=== PATIENT | male | born 1960 | race Hispanic/Latino ===

== ENCOUNTER 2022-11-19 15:00 | Observation (INO) | payer BC ==
--- OUTSIDE RECORDS SUMMARY | 2022-11-19 15:03 | XMS REPORT | Continuity of Care Document ---
:1960 Author Organization [facility] t Address [address] [place] [address] Care Team Providers Name Role Phone Asked, No Pcp Primary Care Physician Unavailable Don Rivas Attending Clinician Unavailable DR BRADFORD ARMANDO Attending Clinician Unavailable DR BRADFORD ARMANDO Admitting Clinician Unavailable Problems Condition Condition Condition Status Onset Resolution Last Treating Co mments Source Name Details Category Date Date Treatment Clinician Date Recurrent Recurrent Disease Active Last Met hodi ventral ventral 12-[address] incisional incisional 00:00: t & Plan: Hospita hernia hernia 00 Formattin l g of this note might be different from the original. The patient has 3 palpable hernias in the right abdomen. The patient brought in imaging on a CD from an outside facility that also shows these 3 hernias. The 2 hernias in the previous gallbladd er incision are recurrent and mesh is seen at this level. On the CT scan. The right lateral hernia is from a previous robotic partial nephrecto my. The patient will be allowed to return to work at this time without any heavy lifting. The patient was told to work on weight loss as his obesity and diabetes puts him at a much higher risk for complicat ion with ventral hernia repair. The patient will call back when he has lost enough weight to get his BMI below 30 kg/m2. Type 2 Type 2 Disease Active Last Methodi diabetes diabetes 12-[address] mellitus mellitus 00:00: t & Plan: Hos nathaly 00 Formattin l g of this note might be different from the original. The patient is an insulin-d ependent diabetic, type II. The patient's hemoglobi n A1c levels have been up and down per the patient. The patient will need tight control of his hemoglobi n A1c prior to any hernia repair. Allergies, Adverse Reactions, Alerts Allergy Allergy Status Severity Reaction(s) Onset Inactive Treating Comm ents Source Name Type Date Date Clinician Karthikeyan Gibbs Active Cardiac Methodi ty to [address] adverse 00:00: Hospita reaction 00 l s to drug Family History Family Member Diagnosis Comments Start Date Stop Date Source Maternal grandmother No Known Problems [facility] Natural mother Leukemia [facility] Paternal grandfather No Known Problems [facility] Paternal grandmother No Known Problems [facility] Natural sister No Known Problems [facility] Natural son No Known Problems [facility] Natural brother Diabetes [facility] Natural brother No Known Problems [facility] Natural daughter No Known Problems [facility] Natural father No Known Problems Met [facility] Maternal grandfather No Known Problems [facility] Social History Social Habit Start Date Stop Date Quantity Comments Source History of tobacco Smokes tobacco [facility] use daily Hospital Cigarettes smoked 2017-12-16 2017-12-16 [facility] current (pack per 00:00:00 00:00:00 Hospita l day) - Reported Tobacco use and 2017-12-16 2017-12-16 Smokeless tobacco [facility] exposure 00:00:00 00:00:00 non-user Hospital Alcohol intake 2017-12-16 2017-12-16 Current drinker [facility] 00:00:00 00:00:00 of alcohol Hospital (finding) Sex Ass[birth year] At [birth year] [employer] 00:00:00 00:00:00 Hospital Smoking Status Start Date Stop Date Source Smokes tobacco daily 2017-12-16 00:00:00 [facility] Medications Ordered Filled Start Stop Current Ordering Indication Dosage Frequency Signature Comments Components Source Medication Medication Date Date Medication? Clinician (SIG) Name Name L. Yes QD Take by Methodi RHAMNOSUS 1-[address] GG/INULIN 10:08: daily. Hospit a (CULTURELLE 50 l PROBIOTICS ORAL) metFORMIN Yes 1000mg Q.5D Take 1,000 Methodi (GLUCOPHAGE 1-[address] ) 1,000 mg 10:08: mouth 2 Hosp christi tablet 50 (two) l times a day with meals. ramipril Yes 5mg QD Take 5 mg Meth rico (ALTACE) 5 -[address] MG capsule 10:08: daily. Hospi ta 50 l fenofibrate 2018-0 Yes 54mg QD Take 54 mg [facility]i (LOFIBRA) -[address] 54 MG 10:08: daily. Hospita tablet 50 l amitriptyli 2018-0 Yes 25mg QD Take 25 mg Methodi ne (ELAVIL) -[address] 25 MG 10:08: nightly. Hospita tablet 50 l icosapent 2018-0 Yes 2g Q.5D Take 2 g [facility] ethyl 1-[address] (VASCEPA) 1 10:08: (two) Hospi ta gram 50 times a l capsule day. BABY 2018-0 Yes QD Take by Methodi ASPIRIN -[address] ORAL 10:08: daily. Hospita 50 l cholecalcif 2018-0 Yes 2000U QD Take 2,000 [facility] [place], 1-[address] vitamin D3, 10:08: mouth Hospi ta (VITAMIN 50 daily. l D3) 2,000 unit capsule capsule cyanocobala 2018-0 Yes 1000ug QD Take 1,000 Methodi min 1000 1-[address] MCG tablet 10:08: mouth Hospit a 50 daily. l cinnamon 2018-0 Yes 500mg Q.5D Take 500 Meth rico bark 500 mg 1-[address] capsule 10:08: mouth 2 Hospita 50 (two) l times a day. pioglitazon 2018-0 Yes 15mg QD Take 15 mg Methodi e (ACTOS) -[address] 15 MG 10:08: daily. Hospita tablet 50 l omeprazole 2018-0 Yes 40mg QD Take 40 mg M ethodi (PriLOSEC) -[address] 40 MG 10:08: daily. Hospita capsule 50 l diclofenac 2018-0 Yes 2g Q.25D Apply 2 g M ethodi (VOLTAREN) -[address] 1 % gel 10:08: 4 (four) Hospit a 50 times a l day. dapaglifloz 2018-0 Yes 10mg QD Take 10 mg Methodi in -[address] (FARXIGA) 10:08: daily. Hospit a 10 mg 50 l tablet dulaglutide 2018-0 Yes 1.5mg Q1W Inject 1.5 Methodi (TRULICITY) 1-[address] 1.5 mg/0.5 10:08: the skin Hos nathaly mL pen 50 every 7 l injector days. INSULIN 2017- Yes 40mL QD Inject 40 Metho di GLARGINE,HU 1-[address] M.REC.ANLOG 10:08: the skin Ho spita (TOUJEO 50 daily. l SOLOSTAR SUBQ) SERTRALINE Yes 200mg QD Take 200 Me thodi HCL (ZOLOFT 1-[address] ORAL) 10:08: mouth Hospita 50 daily. l ALPRAZOLAM Yes Take by Meth rico (NIRAVAM 1-[address] ORAL) 10:08: needed. Hospita 50 l Procedures This patient has no known procedures. Plan of Care Planned Activity Planned Date Details Comments Source Future Scheduled 2022-11-12 COVID-19 VACCINE (#1) [facility] Test 23:04:19 [code = COVID-19 VACCINE (#1)] Future Scheduled 2022-11-12 COLONOSCOPY SCREENING [facility] Test 23:04:19 [code = COLONOSCOPY SCREENING] Future Scheduled 2022-11-12 SHINGLES VACCINES (1 Met [facility] Test 23:04:19 of 2) [code = SHINGLES VACCINES (1 of 2)] Future Scheduled 2022-11-12 INFLUENZA VACCINE [facility] Test 23:04:19 [code = INFLUENZA VACCINE] Encounters Start End Encounter Admission Attending Care Care Encounter Source Date/Time Date/Time Type Type Clinicians Facility Department ID 2022-01-[address] [id number] Common 11:26:00 [facility] 2021-12-[address] [facility] [id number] Common 14:37:28 Don [facility] 2019-09-12 2019-09-12 Outpatient [facility] NICOL [id number] MH 05:08:00 05:08:[address] [facility]osp[facility] l Results Test Description Test Time Test Comments Results Result Comments Source GLUCOMETER GLUCOSE- LAB USE ONLY 2017-04-08 07:50:00 Test Item Value Reference Range Interpretation Comme nts GLUCOMETER (test code = GMG) 160 mg/dL 70-100 H CLEANED METERMeter ID: [id number] tor: [id number] NANCY BRITO
[2022-11-19] MEDS ORDERED: LIDOCAINE 1% MPF 5 ML VIAL ONE (15:15)
[2022-11-19] MEDS ORDERED: BUPIVACAINE 0.5% PF 10 ML VIAL ONE (15:15)
[2022-11-19] MEDS ORDERED: TDAP (DIPHTH,PERTUSS(ACELL),TET VAC) 0.5 ML VIAL IMVAC ONE (15:15)
--- NOTE | 2022-11-19 15:52 | RAD REPORT ---
EXAM DESCRIPTION: RAD - Hand Left 3 View - 11/19/2022 3:43 pm CLINICAL HISTORY: PAIN COMPARISON: No comparisons FINDINGS/IMPRESSION: Partial osseous amputation of the tuft of the second distal phalanx. Bandage ma terial present. No radiopaque foreign body.
--- NOTE | 2022-11-19 16:16 | ER ---
Nurse's Notes [facility] Name: Himanshu Mcdermott Age: 62 yrs Sex: Male : 1960 Arrival Date: 11/19/2022 Time: 15:02 Bed 13 Private MD: Diagnosis: Partial amputation of second digit of left hand with partial amputation of tuft Presentation: 11/19 15:07 Chief complaint: Left index finger tip amputation from a piece of wood that bounced up hb while he was cutting wood. Bleeding controlled via direct pressure. Coronavirus screen: At this time, the client does not indicate any symptoms associated with coronavirus-19. Ebola Screen: No symptoms or risks identified at this time. Risk Assessment: Do you want to hurt yourself or someone else? Patient reports no desire to harm self or others. Onset of symptoms was November 19, 2022. 15:07 Method Of Arrival: Ambulatory hb 15:07 Acuity: PAU 2 hb 19:04 Initial Sepsis Screen: Does the patient meet any 2 criteria? No. Patient's initial db sepsis screen is negative. Does the patient have a suspected source of infection? No. Patient's initial sepsis screen is negative. Triage Assessment: 16:58 General: Appears in no apparent distress. Behavior is calm, cooperative, anxious. db Injury Description: Amputation sustained to left hand and dorsal aspect of distal phalanx of left index finger. Historical: - Allergies: 15:09 Iodine; hb - PMHx: 16:40 Diabetes - IDDM; Hernia; db - Immunization history:: Last tetanus immunization: < 10 years ago. - Social history:: Smoking status: unknown. Screenin:50 [facility] ED Fall Risk Assessment (Adult) History of falling in the last 3 months, db including since admission No falls in past 3 months (0 pts) Confusion or Disorientation No (0 pts) Intoxicated or Sedated No (0 pts) Impaired Gait No (0 pts) Mobility Assist Device Used No (0 pt) Altered Elimination No (0 pt) Score/Fall Risk Level 0 - 2 = Low Risk Oriented to surroundings. Abuse screen: Denies threats or abuse. Denies injuries from another. Nutritional screening: No deficits noted. Tuberculosis screening: No symptoms or risk factors identified. Assessment: 15:47 Reassessment: Patient appears in no apparent distress at this time. left tip of finger db injury. bleeding controlled. Wet to dry dressing applied in ER. General: Appears in no apparent distress. Behavior is calm, cooperative, appropriate for age, quiet. Pain: Complains of pain in left hand. Neuro: No deficits noted. Level of Consciousness is awake, alert, obeys commands, Oriented to person, place, time, situation, Appropriate for age. Cardiovascular: No deficits noted. Respiratory: No deficits noted. GI: No deficits noted. No signs and/or symptoms were reported involving the gastrointestinal system. : No deficits noted. No signs and/or symptoms were reported regarding the genitourinary system. EENT: No deficits noted. No signs and/or symptoms were reported regarding the EENT system. Musculoskeletal: Amputation of left index finger. 16:00 Reassessment: Patient appears in no apparent distress at this time. No changes from db previously documented assessment. Patient and/or family updated on plan of care and expected duration. Pain level reassessed. Patient is alert, oriented x 3, equal unlabored respirations, skin warm/dry/pink. 17:00 Reassessment: Patient appears in no apparent distress at this time. No changes from db previously documented assessment. Patient and/or family updated on plan of care and expected duration. Pain level reassessed. Patient is alert, oriented x 3, equal unlabored respirations, skin warm/dry/pink. 18:30 Reassessment: Patient appears in no apparent distress at this time. No changes from db previously documented assessment. Patient and/or family updated on plan of care and expected duration. Pain level reassessed. Patient is alert, oriented x 3, equal unlabored respirations, skin warm/dry/pink. Vital Signs: 15:00 BP 137 / 91; Pulse 95; Resp 18; Pulse Ox 98% on R/A; db 15:07 BP 137 / 81; Pulse 90; Resp 18; Temp 98.1; Pulse Ox 97% on R/A; Weight 97.52 kg; Height hb 6 ft. 2 in. (187.96 cm); Pain 10/10; 18:00 BP 145 / 86; Pulse 86; Resp 18; Pulse Ox 98% on R/A; db 15:07 Body Mass Index 27.60 (97.52 kg, 187.96 cm) ED Course: 15:02 Patient arrived in ED. rg4 15:05 [facility] Ari[facility]-C [facility]. kb 15:05 Steve Toscano MD is Attending Physician. kb 15:09 Triage completed. hb 15:10 Arm band placed on. hb 15:12 Ximena Mayo, RN is Primary Nurse. db 15:45 Hand Left 3 View XRAY In Process Unspecified. EDMS 15:50 Patient has correct armband on for positive identification. Bed in low position. Call db light in reach. Side rails up X 1. 15:50 Assist provider with laceration repair on left hand. db 16:15 Jacky Blunt MD is Hospitalizing Provider. kb 16:30 Initial lab(s) drawn, by me, sent to lab. Inserted saline lock: 20 gauge in right kj1 antecubital area, using aseptic technique. Blood collected. 16:50 EKG done, by ED staff, reviewed by Haley PINEDO. zm 17:10 Chest Single View XRAY In Process Unspecified. EDMS 17:27 Dressings: Kerlix X 1; left hand and dorsal aspect of distal phalanx of left index db finger 4X4s X 1; left hand and dorsal aspect of distal phalanx of left index finger. Wound care: Dressing re-applied to left injured finger. Bleeding controlled. 19:05 Report given to aluminum molding machine operator RN. Pulse ox on. NIBP on. Lights dimmed. Warm blanket given.db 19:12 Primary Nurse role handed off by Ximena Mayo, JACKY mw2 20:26 Master Aguilar, JACKY is Primary Nurse. as6 11/20 00:31 Patient admitted, IV remains in place. as6 Administered Medications: 11/19 15:34 Drug: Lidocaine (1 %) 1 vials Volume: 5 ml; Route: Infiltration; db 16:08 Follow up: Response: No adverse reaction db 15:35 Drug: Tetanus-Diphtheria Toxoid Adult 0.5 ml {[employer] Professor: [employer] ([employer]). Exp: db 08/22/2023. Lot #: [id number]. } Route: IM; Site: left deltoid; 16:08 Follow up: Response: No adverse reaction db 15:35 Drug: Marcaine (bupivacaine) (0.5 %) 1 vials {Note: BY PROVIDER.} Volume: 10 ml; Route: db Infiltration; 16:08 Follow up: Response: No adverse reaction db 16:32 Drug: Ancef (cefazolin) 1 grams Route: IVPB; Site: right antecubital; db 17:05 Follow up: Response: No adverse reaction; IV Status: Completed infusion; IV Intake: 50mldb Medication: 11/20 00:31 Vaccine Information Statement (VIS) provided today. Questions and/or concerns as6 addressed. VIS edition date: July 04, 2021. Intake: 11/19 17:05 IV: 50ml; Total: 50ml. db Outcome: 16:15 Decision to Hospitalize by Provider. kb 11/20 00:31 Admitted to ER Hold. Please see [employer] for further documentation. as6 Condition: stable Instructed on the need for admit. 07:45 Patient left the ED. db Signatures: Dispatcher [employer] EDHaley Valladares, ASSISTANT PROFESSOR OF BUSINESS-C ASSISTANT PROFESSOR OF BUSINESS-Dionne Guido, RN RN Lesli Greenberg rg4 Bravo Banks mw2 Niru Ariza kj1 Master Aguilar RN RN as6 Negra Mcmahon Danielle, RN RN db Corrections: (The following items were deleted from the chart) 11/19 15:10 15:07 Chief complaint: Left index finger tip amputation from a piece of wood that hb bounced up while he was cutting wood. Bleeding controlled hb
--- NOTE | 2022-11-19 16:16 | EDPHYS ---
Physician Documentation [facility] Name: Himanshu Mcdermott Age: 62 yrs Sex: Male : 1960 Arrival Date: 11/19/2022 Time: 15:02 Bed 13 Private MD: ED Physician Steve Toscano HPI: 11/19 16:24 This 62 yrs old Male presents to ER via Ambulatory with complaints of Finger kb Injury. 16:24 The patient or guardian reports injury, pain. The complaints affect the dorsal aspect kb of distal phalanx of left index finger. Context: The problem was sustained at home, resulted from cutting some wood when a piece flew back and hit finger causing partial amputation. Onset: The symptoms/episode began/occurred just prior to arrival. Modifying factors: The symptoms are alleviated by nothing, the symptoms are aggravated by nothing. Associated signs and symptoms: The patient has no apparent associated signs or symptoms. Severity of symptoms: At their worst the symptoms were moderate, in the emergency department the symptoms are unchanged. The patient has not experienced similar symptoms in the past. The patient has not recently seen a physician. Historical: - Allergies: 15:09 Iodine; hb - PMHx: 16:40 Diabetes - IDDM; Hernia; db - Immunization history:: Last tetanus immunization: < 10 years ago. - Social history:: Smoking status: unknown. ROS: 16:20 Constitutional: Negative for fever, chills, and weight loss. kb 16:20 MS/extremity: Positive for injury or acute deformity, pain, of the dorsal aspect of distal phalanx of left index finger, amputation. 16:20 All other systems are negative. Exam: 16:20 Constitutional: This is a well developed, well nourished patient who is awake, alert, kb and in no acute distress. Head/Face: Normocephalic, atraumatic. ENT: Moist Mucous membranes Cardiovascular: Regular rate and rhythm with a normal S1 and S2. No gallops, murmurs, or rubs. No pulse deficits. Respiratory: Respirations even and unlabored. No increased work of breathing. Talking in full sentences Abdomen/GI: Soft, non-tender. No distention Neuro: Awake and alert, GCS 15, oriented to person, place, time, and situation. Moves all extremities. Normal gait. 16:20 Musculoskeletal/extremity: Extremities: grossly normal except: noted in the dorsal aspect of distal phalanx of left index finger: pain, partial amputation, ROM: intact in all extremities, Circulation is intact in all extremities. Sensation intact. 16:20 Skin: injury, partial amputation of tip of left second digit . 16:50 ECG was reviewed by the Attending Physician. kb Vital Signs: 15:00 BP 137 / 91; Pulse 95; Resp 18; Pulse Ox 98% on R/A; db 15:07 BP 137 / 81; Pulse 90; Resp 18; Temp 98.1; Pulse Ox 97% on R/A; Weight 97.52 kg; Height hb 6 ft. 2 in. (187.96 cm); Pain 10/10; 18:00 BP 145 / 86; Pulse 86; Resp 18; Pulse Ox 98% on R/A; db 15:07 Body Mass Index 27.60 (97.52 kg, 187.96 cm) hb MDM: 15:05 Patient medically screened. kb 16:14 Data reviewed: vital signs, nurses notes. Data interpreted: Pulse oximetry: on room air kb is 97 %. Interpretation: normal. Counseling: I had a detailed discussion with the patient and/or guardian regarding: the historical points, exam findings, and any diagnostic results supporting the discharge/admit diagnosis, lab results, radiology results, the need for further work-up and treatment in the hospital. Physician consultation: Elias Chiang MD was contacted at 16:14, regarding consult, patient's condition, and will see patient in OR, tomorrow. 16:14 Physician consultation: Jacky Blunt MD was contacted at 16:14, regarding admission, kb to the medical/surgical unit. patient's condition, and will see patient in ED. 11/19 16:14 Order name: CBC with Diff; Complete Time: 16:51 kb 11/19 16:14 Order name: Basic Metabolic Panel; Complete Time: 16:52 kb 11/19 17:43 Order name: Urinalysis EDMS 11/19 17:43 Order name: Basic Metabolic Panel EDMS 11/19 17:43 Order name: Basic Metabolic Panel EDMS 11/19 17:43 Order name: CBC with Automated Diff EDMS 11/19 15:10 Order name: Hand Left 3 View XRAY; Complete Time: 15:56 kb 11/19 16:14 Order name: EKG; Complete Time: 16:14 kb 11/19 16:14 Order name: Chest Single View XRAY; Complete Time: 17:21 kb 11/19 17:43 Order name: CBC with Automated Diff EDMS 11/19 16:14 Order name: IV Start; Complete Time: 16:36 kb 11/19 16:14 Order name: EKG - Nurse/Tech; Complete Time: 16:48 kb 11/19 17:43 Order name: 60g Consistent Carbohydrate (ADA 1800/2000) EDMS 11/19 17:43 Order name: NPO EDMS EC:50 Rate is 91 beats/min. Rhythm is regular. QRS Salix is Normal. LA interval is normal at kb 120 msec. QRS interval is normal at 90 msec. QT interval is normal at 437 msec. Administered Medications: 15:34 Drug: Lidocaine (1 %) 1 vials Volume: 5 ml; Route: Infiltration; db 16:08 Follow up: Response: No adverse reaction db 15:35 Drug: Tetanus-Diphtheria Toxoid Adult 0.5 ml {[employer] Supervisor: [employer] ([employer]). Exp: db 08/22/2023. Lot #: [id number]. } Route: IM; Site: left deltoid; 16:08 Follow up: Response: No adverse reaction db 15:35 Drug: Marcaine (bupivacaine) (0.5 %) 1 vials {Note: BY PROVIDER.} Volume: 10 ml; Route: db Infiltration; 16:08 Follow up: Response: No adverse reaction db 16:32 Drug: Ancef (cefazolin) 1 grams Route: IVPB; Site: right antecubital; db 17:05 Follow up: Response: No adverse reaction; IV Status: Completed infusion; IV Intake: 50mldb Disposition: 11/20 21:34 Co-signature as Attending Physician, Steve Toscano MD I agree with the assessment and rt plan of care. Disposition Summary: 11/19/22 16:15 Hospitalization Ordered Hospitalization Status: Observation kb Provider: Jacky Blunt Condition: Stable kb Problem: new kb Symptoms: are unchanged kb Bed/Room Type: Standard kb Location: Telemetry/MedSurg (observation)(11/20/22 07:12) a[facility] Room Assignment: [facility](11/20/22 07:12) ja1 Diagnosis - Partial amputation of second digit of left hand with partial amputation of tuft kb Forms: - Medication Reconciliation Form kb - SBAR form kb Signatures: Dispatcher [employer] EDHaley Valladares, MANAGER BAR-C MANAGER BAR-Dionne Guido, RN RN Mina White RN RN ja1 Ximena Maoy RN RN Steve Gimenez MD MD rt Corrections: (The following items were deleted from the chart) 11/19 18:14 16:15 Telemetry/MedSurg (observation) kb [facility] 18:14 16:15 kb [facility] 11/20 07:12 11/19 18:14 [facility] ER HOLD [place] [id number] 11/20 07:12 11/19 18:14 ERHOLD- [place] [id number]
[2022-11-19] MEDS ORDERED: CEFAZOLIN SODIUM 1 GM/VIAL ONE (16:30)
[2022-11-19] MEDS ORDERED: NA CHLORIDE 0.9% 50 ML IV ONE (16:31)
[2022-11-19 16:47] LABS: Absolute Lymphocytes (CBC) 2.5 K/uL (0.7-4.9); Hematocrit 41.2 % (39.6-49.0); MCV 91.8 fL (80-100); MPV 8.1 fL (7.6-11.3); RBC Red Blood Cell Count 4.48 M/uL (4.33-5.43)
[2022-11-19 16:51] LABS: Potassium 3.9 mmol/L (3.5-5.1)
--- NOTE | 2022-11-19 17:18 | RAD REPORT ---
EXAM DESCRIPTION: RAD - Chest Single View - 11/19/2022 5:08 pm CLINICAL HISTORY: preop COMPARISON: CHEST SINGLE VIEW dated 01/19/2011; CHEST SINGLE VIEW dated 01/17/2011; Hand Left 3 View d ated 11/19/2022 FINDINGS: Lines: None. Lungs: No evidence of edema or pneumonia. Pleural: No significant pleural effusions or pneumothorax. Cardiac: The heart size is within normal limits. Mediastinum: Within normal limits. Bones: No acute fractures. Other: None IMPRESSION: No acute cardiopulmonary disease.
[2022-11-19] MEDS ORDERED: ONDANSETRON 4 MG/2 ML VIAL IV PRN (17:35)
[2022-11-19] MEDS ORDERED: ACETAMINOPHEN 500 MG TAB PO PRN (17:35)
--- NOTE | 2022-11-19 17:48 | P.HP ---
Certification for Inpatient Patient admitted to: Inpatient With expected LOS: >2 Midnights Patient will require the following post-hospital care: None Practitioner: I am a practitioner with admitting privileges, knowledge of patient current condition, hospital course, and medical plan of care. Services: Services provided to patient in accordance with Admission requirements found in Title 42 Section 412.3 of the Code of Federal Regulations <Aroldo Zavaleta - Last Filed: 11/19/22 20:16> Patient History Date of Service: 11/19/22 Reason for admission: Partial amputation of second digit of left hand with partial amputation History of Present Illness: This is a 62 year old male with PMH of DM2, hernia and kidney cancer who presents to the ER with left tip of left index finger injury. Patient states that he was cutting some word and a piece of wood took off the tip of his left index finger. The bleeding controlled via direct pressure in the ER. Present was evaluated at the bedside with his . Patient was in no apparent distress and denies any pain. Home medications list reviewed: Yes - Past Medical/Surgical History Has patient received pneumonia vaccine in the past: Yes Diabetic: Yes -: IDDM -: Hernia -: Kidney cancer -: Cholecystectomy -: Hernia repair - Family History Family History: Reviewed- Non-Contributory - Family History Mother -: Cancer Notes: Leukemia - Social History Smoking Status: Light Tobacco smoker (1-9 cigarettes/day) Counseled patient to stop smoking for: more than 10 minutes Smoking therapy provided: Yes Patient receptive to therapy: Yes Alcohol use: No CD- Drugs: No Caffeine use: Yes <Aroldo Zavaleta - Last Filed: 11/19/22 20:16> Date of Service: 11/19/22 <Jacky Blunt - Last Filed: 11/19/22 22:01> Allergies Iodine and Iodide Containing Produc Allergy (Verified 11/30/17 17:30) Hives Home Medications: Amitriptyline [Elavil*] 1 tab PO DAILY 11/30/17 Aspirin [Children's Aspirin] 1 tab PO DAILY 11/30/17 Cyanocobalamin (Vitamin B-12) [B-12] 1 tab PO DAILY 11/30/17 Dapagliflozin Propanediol [Farxiga] 1 tab PO DAILY 11/30/17 Dulaglutide [Trulicity] 1.5 mg IJ SEECOM 11/30/17 Fenofibrate 54 mg PO DAILY 11/30/17 Icosapent Ethyl [Vascepa] 2 cap PO BID 11/30/17 Insulin Glargine,Hum.rec.anlog [Toujeo Solostar] 40 unit SQ DAILY 11/30/17 L.acidoph,Paracasei, B.lactis [Probiotic] 1 each PO DAILY 11/30/17 Metformin HCl 1 tab PO BID 11/30/17 Pioglitazone [Actos*] 1 tab PO BID 11/30/17 Ramipril [Altace] 1 tab PO DAILY 11/30/17 Review of Systems 10-point ROS is otherwise unremarkable Musculoskeletal: As per HPI <Aroldo Zavaleta - Last Filed: 11/19/22 20:16> Physical Examination - Vital Signs Temperature: 98.1 F Blood Pressure: 137/81 Pulse: 95 Respirations: 22 Pulse Ox (%): 98 - Physical Exam General: Oriented x3 HEENT: Atraumatic, Normocephalic Neck: Supple, 2+ carotid pulse no bruit Respiratory: Clear to auscultation bilaterally, Normal air movement Cardiovascular: No edema, Normal pulses, Regular rate/rhythm Capillary refill: <2 Seconds Gastrointestinal: Normal bowel sounds, Soft and benign Musculoskeletal: Other (Partial amputation of second digit of left hand with partial amputation of tuft) Integumentary: No rashes, No breakdown Neurological: Normal gait, Normal speech Lymphatics: No axilla or inguinal lymphadenopathy - Studies Laboratory Data (last 24 hrs) 11/19/22 16:30: Sodium 141, Potassium 3.9, BUN 22 H, Creatinine 1.22, Glucose 145 H 11/19/22 16:30: WBC 8.00, Hgb 13.9, Hct 41.2, Plt Count 218 <Aroldo Zavaleta - Last Filed: 11/19/22 20:16> - Studies Laboratory Data (last 24 hrs) 11/19/22 16:30: Sodium 141, Potassium 3.9, BUN 22 H, Creatinine 1.22, Glucose 145 H 11/19/22 16:30: WBC 8.00, Hgb 13.9, Hct 41.2, Plt Count 218 <Jacky Blunt - Last Filed: 11/19/22 22:01> Assessment and Plan - Plan Plan Partial amputation of second digit of left hand with partial amputation of tuft Surgery consulted NPO after midnight DM2 Blood glucose AC/HS DVT prophylaxis- SCDs Discharge Plan: Home Plan to discharge in: Greater than 2 days - Advance Directives Does patient have a Living Will: No Does patient have a Durable POA for Healthcare: No - Code Status/Comfort Care Code Status Assessed: Yes Code Status: Full Code <Aroldo Zavaleta - Last Filed: 11/19/22 20:16> Time Spent Managing Pts Care (In Minutes): 65 <Jacky Blunt - Last Filed: 11/19/22 22:01>
[2022-11-20 00:48] VITALS: BMI 27.6
[2022-11-20 03:18] LABS: Absolute Lymphocytes (CBC) 3.7 K/uL (0.7-4.9); Hematocrit 41.4 % (39.6-49.0); Lymphocytes % 36.6 % (15.3-44.8); MCV 91.5 fL (80-100); RBC Red Blood Cell Count 4.52 M/uL (4.33-5.43)
[2022-11-20 03:25] LABS: Potassium 3.6 mmol/L (3.5-5.1)
[2022-11-20] MEDS ORDERED: MORPHINE 2 MG/ML SYR IV PRN (05:52)
[2022-11-20] MEDS ORDERED: MORPHINE 2 MG/ML SYR ONE (05:56)
[2022-11-20] MEDS ORDERED: NA CHLORIDE 0.9% 1,000 ML ONE (07:48)
[2022-11-20] MEDS ORDERED: CEFAZOLIN SODIUM 1 GM/VIAL ONE ×2 (08:29→08:30)
[2022-11-20] MEDS ORDERED: GENTAMICIN SULF 80 MG/2ML INJ ONE (08:30)
[2022-11-20] MEDS ORDERED: propofoL 200 MG/20 ML VIAL IV ONE (08:34)
[2022-11-20] MEDS ORDERED: FENTANYL CITR 100 MCG/2 ML ONE (08:34)
[2022-11-20] MEDS ORDERED: ONDANSETRON 4 MG/2 ML VIAL ONE ×2 (08:34→10:45)
[2022-11-20] MEDS ORDERED: MIDAZOLAM HCL 2 MG/2 ML INJ ONE (08:34)
[2022-11-20] MEDS ORDERED: LIDOCAINE 2% MPF 5 ML VIAL ONE (08:34)
[2022-11-20] MEDS ORDERED: INFLUENZA VACCINE (for 6+ mo) 0.5 ML DOSE IMVAC ONE (09:00)
[2022-11-20] MEDS ORDERED: EPHEDRINE SULF 50 MG/ML VIAL ONE (09:10)
[2022-11-20] MEDS: HYDROMORPHONE HCL 1 MG/ML INJ ONE ×4 (09:45→10:17)
--- NOTE | 2022-11-20 09:55 | P.DS ---
Admission Date: 11/19/22 Discharge Date: 11/20/22 Disposition: ROUTINE DISCHARGE Discharge Condition: GOOD Reason for Admission: Partial amputation of second digit of left hand with partial amputation Consultations: Dr. Chiang Brief History of Present Illness: 62yo M, PMH: DM2, hernia, renal cancer Prsented to ER with left tip of left index finger injury. Patient states that he was cutting some word and a piece of wood took off the tip of his left index finger. The bleeding controlled via direct pressure in the ER. Present was evaluated at the bedside with his . Patient was in no apparent distress and denies any pain. Hospital Course: Problem List Partial amputation of 2nd digit of left hand with partial amputation of tuft DM2 Patient was given antibiotics in the ED, underwent debridement by Dr. Chiang. He was deemed stable for discharge home. Prescribed pain medication and antibiotics. Vital Signs/Physical Exam: Temp Pulse Resp BP Pulse Ox 98 F 88 16 138/79 98 11/20/22 09:32 11/20/22 09:32 11/20/22 09:32 11/20/22 09:32 11/20/22 07:37 General: Alert, In no apparent distress, Oriented x3 HEENT: EOMI, Sclerae nonicteric Neck: Supple, No LAD Respiratory: Clear to auscultation bilaterally, Normal air movement Cardiovascular: No edema, Regular rate/rhythm Gastrointestinal: Soft and benign, Non-distended, No tenderness Musculoskeletal: Other (surgical dressing in place, c/d/i) Neurological: Normal speech, Normal strength at 5/5 x4 extr, Abnormal speech Laboratory Data at Discharge: WBC 10.10 K/uL (4.3-10.9) 11/20/22 02:57 Hgb 14.1 g/dL (13.6-17.9) 11/20/22 02:57 Hct 41.4 % (39.6-49.0) 11/20/22 02:57 Plt Count 222 K/uL (152-406) 11/20/22 02:57 Sodium 143 mmol/L (136-145) 11/20/22 02:57 Potassium 3.6 mmol/L (3.5-5.1) 11/20/22 02:57 BUN 17 mg/dL (7-18) 11/20/22 02:57 Creatinine 1.14 mg/dL (0.70-1.30) 11/20/22 02:57 Glucose 109 mg/dL (74-106) H 11/20/22 02:57 Home Medications: Amitriptyline [Elavil*] 1 tab PO DAILY 11/30/17 Aspirin [Children's Aspirin] 1 tab PO DAILY 11/30/17 Cyanocobalamin (Vitamin B-12) [B-12] 1 tab PO DAILY 11/30/17 Dapagliflozin Propanediol [Farxiga] 1 tab PO DAILY 11/30/17 Dulaglutide [Trulicity] 1.5 mg IJ SEECOM 11/30/17 Fenofibrate 54 mg PO DAILY 11/30/17 Icosapent Ethyl [Vascepa] 2 cap PO BID 11/30/17 Insulin Glargine,Hum.rec.anlog [Mayda Portillo] 40 unit SQ DAILY 11/30/17 L.acidoph,Paracasei, B.lactis [Probiotic] 1 each PO DAILY 11/30/17 Metformin HCl 1 tab PO BID 11/30/17 Pioglitazone [Actos*] 1 tab PO BID 11/30/17 Ramipril [Altace] 1 tab PO DAILY 11/30/17 Followup: NONE,NONE [Primary Care Provider] - Time spent managing pt's care (in minutes): 45
[2022-11-20 10:59] VITALS: TEMP 97.8
[2022-11-20 11:01] VITALS: BP 135/84; O2SAT 94
[2022-11-20] MEDS ORDERED: PROMETHAZINE INJ 25 MG/ML AMP IV ONE (12:00)
[2022-11-20] MEDS ORDERED: HYDROCODONE/APAP 7.5/325 MG TAB PO ONE (12:00)
--- NOTE | 2022-11-20 13:03 | OP ---
Surgeon: Elias Chiang MD Preoperative Diagnosis: Abscess of tip of left index finger. Postoperative Diagnosis: Abscess of tip of left index finger. Procedure Performed: Debridement of skin and subcutaneous tissue and bone, flap closure. Anesthesia: General. Description Of Procedure: After satisfactory induction of general anesthesia, the hand was prepped w sage DuraPrep. Dry sterile drapes applied in the usual manner. The hand placed on roll lock table. A periosteal elevator was used to remove the nail plate then a transverse incision made wi th a scalpel, about half the length of the nail and then it was removed. A bone cutter was used to c ut it and then the patient had a V-Y flap outline from the ulnar side advanced to the radial side. T his was done and then sewn in place with 4-0 Prolene. The nail plate was placed packed proximally an d held in place. The dressing consisted of Xeroform, 2-inch Rhina. The patient tolerated procedure well and returned to recovery room. RUBÉN/ARIANA Voice ID: [id number] Report ID: [id number]
--- NOTE | 2022-11-20 18:39 | HP ---
Date of Admission: 11/19/2022 History Of Present Illness: A 62-year-old white male, right-hand dominant, who crushed his left inde x finger the day before at 3 p.m. . Social History: He currently smokes a quarter-pack a day and does not drink alcohol. Allergies: NO ALLERGIES. Medications: Ozempic. Physical Examination: He is 6 feet, 250 pounds. On examination he has full tip amputation of the left index finger at dist al phalanx. Imaging: X-ray showed no fracture. Assessment: Tip amputation. Plan: Debridement, flap graft or revision amputation. RUBÉN/ARIANA Voice ID: [id number]
--- NOTE | 2022-11-21 17:26 | EKG ---
Test Date: 2022-11-19 Test Time: 16:45:45 Contact Lens Inspector: WENDY MEASUREMENT RESULTS: Intervals: Rate: 91 LA: 120 QRSD: 90 QT: 356 QTc: 437 [place]: P: 42 LA: 120 QRS: -7 T: 76 INTERPRETIVE STATEMENTS: Normal sinus rhythm Normal ECG Compared to ECG 01/21/2011 05:43:21 ST (T wave) deviation no longer present Electronically Signed On 11-21-22 17:24:47 LAST SCOURER by Kelton Sinha
== END 2022-11-20 13:12 | disposition home or self-care (01) ==
LOC: ER 15:00 → ERHOLD 17:49 → 2ND 11-20 07:36 → ERHOLD 11-20 07:36
PROVIDERS: ADMIT Hospitalist; ATTEND Hospitalist
PROC: 0PBV0ZZ Excision of Left Finger Phalanx, Open Approach (ICD-10-PCS; 2022-11-20)
PROC: 0HXGXZZ Transfer Left Hand Skin, External Approach (ICD-10-PCS; principal; 2022-11-20 08:30)
DX: S68.121A Partial traumatic metacarpophalangeal amputation of left index finger, initial encounter (principal); F17.210 Nicotine dependence, cigarettes, uncomplicated; E11.9 Type 2 diabetes mellitus without complications; Z91.09 Other allergy status, other than to drugs and biological substances; W20.8XXA Other cause of strike by thrown, projected or falling object, initial encounter; Y93.89 Activity, other specified; Y92.015 Private garage of single-family (private) house as the place of occurrence of the external cause; Z23 Encounter for immunization
CPT/HCPCS: 96365; 93005; 85025 ×2; 80048 ×2; 36415; 82947 ×2; 88304; 71045; 73130; 90471; 99285; 11044; 14040; J2704; J2550; J2001 ×2; J2250; J3010; J2270; J1170 ×2; G0378 ×4; J7030; J2405 ×2; J0690 ×3; 88311; J1580

== ENCOUNTER 2024-11-19 14:22 | Emergency (ER) | payer MEDICARE, OTHER ==
[2024-11-19] MEDS ORDERED: KETOROLAC 30 MG/ML INJ ONE (14:51)
[2024-11-19] MEDS ORDERED: ONDANSETRON 4 MG/2 ML VIAL ONE (14:51)
[2024-11-19] MEDS ORDERED: NA CHLORIDE 0.9% 1,000 ML ONE ×2 (14:51→15:50)
[2024-11-19 15:03] LABS: Absolute Basophils 0.1 K/uL (0-0.5); Absolute Lymphocytes (CBC) 1.2 K/uL (0.7-4.9); Absolute Neutrophil 11.8 K/uL (1.8-8.0); Basophils % 0.4 % (0-1.3); Hematocrit 43.1 % (39.6-49.0); Hemoglobin 14.1 g/dL (13.6-17.9); Lymphocytes % 8.5 % (15.3-44.8); MCH 31.1 pg (27.0-35.0); MCHC 32.7 g/dL (32.0-36.0); MPV 8.5 fL (7.6-11.3); Monocytes % 7.4 % (3.3-12.3); Neutrophils % 83.7 % (41.7-73.7); Platelets 215 thou/uL (152-406); RBC Red Blood Cell Count 4.54 M/uL (4.33-5.43); Red Cell Distribution Width 13.7 % (12.1-15.2)
[2024-11-19 15:17] LABS: Albumin 3.8 g/dL (3.4-5.0); Albumin/Globulin Ratio 0.9 (1.1-1.8); Anion Gap 10.7 mEq/L (5.0-15.0); Bilirubin Total 0.8 mg/dL (0.2-1.0); Globulin 4.3 g/dL (2.3-3.5); Potassium 3.7 mEq/L (3.5-5.1); Protein, Total 8.1 g/dL (6.4-8.2)
[2024-11-19 15:27] LABS: SARS-CoV-2 Antigen CONTROL BLUE LINE VIS/BG OK; SARS-CoV-2 Antigen Rapid Res Negative (Negative)
[2024-11-19] MEDS ORDERED: ACETAMINOPHEN 500 MG TAB ONE (15:35)
--- NOTE | 2024-11-19 16:42 | RAD REPORT ---
EXAM: CT CHEST, ABDOMEN AND PELVIS WITHOUT CONTRAST CLINICAL INDICATION: cough, fever, tachycardia, n/v TECHNIQUE: CT chest, abdomen and pelvis was performed without contrast, as per department protocol. A xial, sagittal and coronal reconstructions were obtained. One or more of the following dose reduction techniques were used: Automated exposure control, adjustment of the mA and/or kV according to patient size, and/or iterative reconstruction. Unless otherwise specified, incidental findings do not require dedicated imaging follow-up. Examination is limited by the lack of intravenous contrast material. COMPARISON: 08/26/2023 FINDINGS: LUNGS: Mild linear atelectasis is seen in both lung bases posteriorly. The lungs are otherwise clear. PLEURA: No pleural effusion. No pneumothorax. MEDIASTINUM AND LYMPH NODES: No mediastinal mass or fluid collection. Normal size mediastinal, hilar, and axillary lymph nodes. OSSEOUS STRUCTURES AND CHEST WALL: Intact. LIVER: Normal in size and contour. No focal lesion or biliary dilatation. Cholecystectomy clips. PANCREAS: No mass, ductal dilation, or iker-pancreatic fluid. SPLEEN: Normal size. No focal lesion. ADRENALS: Normal; no mass. KIDNEYS: Punctate calyceal stones bilaterally without hydronephrosis. URINARY BLADDER: Normal contour. GASTROINTESTINAL TRACT: No bowel obstruction, free air, significant free fluid or abscess. Moderate stool is retained throughout the colon. APPENDIX: Normal appendix. LYMPH NODES: No lymphadenopathy. MUSCULOSKELETAL: No acute or suspicious osseous abnormality. OTHER: Surgical changes involving the stomach. IMPRESSION: No acute abnormalities seen in the chest, abdomen or pelvis. Punctate calyceal stones in both kidneys without hydronephrosis.
--- NOTE | 2024-11-19 16:57 | EDPHYS ---
Physician Documentation [facility] Name: Himanshu Mcdermott Age: 64 yrs Sex: Male : 1960 Arrival Date: 11/19/2024 Time: 14: Bed 13 Private MD: ED Physician Torres Do HPI: 11/19 15:04 This 64 yrs old Male presents to ER via Ambulatory with complaints of Flu sb4 symptoms. 15:04 Patient reports flulike symptoms that began 3 days ago-cough, congestion, chills, body sb4 aches. States that he has been taking TheraFlu without any improvement in symptoms. States that today he started experiencing nausea and vomiting. Denies any chest pain or shortness of breath. Historical: - Allergies: 14:34 Iodine; tm6 - PMHx: 14:34 Diabetes - IDDM; Hernia; kidney cancer (Hernia); tm6 - PSHx: 14:34 gastric sleeve (Hernia); part of kidney removed (Hernia); tm6 - Immunization history:: Flu vaccine is not up to date. - Infectious Disease History:: Denies. - Social history:: Smoking status: Patient reports the use of cigarette tobacco products, smokes .25 packs per day. ROS: 15:26 Cardiovascular: Negative for chest pain, palpitations, and edema, sb4 15:26 Constitutional: Positive for body aches, chills, fatigue, fever, 15:26 Respiratory: Positive for cough, 15:26 Abdomen/GI: Positive for nausea and vomiting, 15:26 All other systems are negative, Exam: 15:26 Head/Face: Normocephalic, atraumatic. Eyes: Extra-ocular motions intact. Periorbital sb4 areas with no swelling, redness, or edema. ENT: Mucous membranes moist. Respiratory: No increased work of breathing, no retractions or nasal flaring. Abdomen/GI: Soft, non-tender, no distension. Skin: Warm, dry with normal turgor. Normal color with no rashes, no lesions, and no evidence of cellulitis. 15:26 Constitutional: The patient appears alert, awake, uncomfortable, 15:26 Cardiovascular: Rate: tachycardic, Rhythm: regular, Vital Signs: 14:32 BP 151 / 72; Pulse 117; Resp 19; Temp 99.9(O); Pulse Ox 94% on R/A; MAP 94 mmHg; Weight tm6 90.72 kg; Height 6 ft. 0 in. ; Pain 8/10; 15:01 BP 140 / 72; Pulse 115; Resp 19; Pulse Ox 95% on R/A; ap3 15:58 BP 127 / 61; Pulse 117; Pulse Ox 93% on R/A; ap3 16:42 Pulse 104; Pulse Ox 95% ; ap3 14:32 Body Mass Index 27.12 (90.72 kg, 182.88 cm) tm6 14:32 Pain Scale: Adult tm6 MDM: 14:28 Medical Screening Exam initiated antony 16:24 Differential diagnosis: viral gastroenteritis, gastroenteritis, covid, flu. Data sb4 reviewed: vital signs, nurses notes, lab test result(s), radiologic studies. 16:55 Counseling: I had a detailed discussion with the patient and/or guardian regarding the sb4 historical points, exam findings, and any diagnostic results supporting the discharge/admit diagnosis, the presence of at least one elevated blood pressure reading (>120/80) during this emergency department visit, lab results, radiology results, to return to the emergency department if symptoms worsen or persist or if there are any questions or concerns that arise at home. 11/19 14:29 Order name: CBC with Diff; Complete Time: 15:06 sb4 11/19 14:29 Order name: CMP; Complete Time: 15:19 sb4 11/19 14:29 Order name: Lipase; Complete Time: 15:19 sb4 11/19 14:29 Order name: SARS RAPID; Complete Time: 15:29 sb4 11/19 14:29 Order name: Flu; Complete Time: 15:29 sb4 11/19 15:39 Order name: CT Chest Abdomen Pelvis W/O Contrast; Complete Time: 16:44 sb4 11/19 14:29 Order name: IV Saline Lock; Complete Time: 14:57 sb4 11/19 14:29 Order name: Labs collected and sent; Complete Time: 14:57 sb4 11/19 15:29 Order name: PO challenge; Complete Time: 15:37 sb4 Administered Medications: 14:57 Drug: TORadol - Ketorolac IVP 15 mg IVP once Route: IVP; Site: right antecubital; ap3 15:59 Follow up: Response: No adverse reaction; Pain is decreased ap3 14:57 Drug: Ondansetron IVP 4 mg IVP once; over 2 minutes Route: IVP; Site: right antecubital;ap3 15:59 Follow up: Response: No adverse reaction; Nausea is decreased ap3 14:57 Drug: NS 0.9% IV 1000 ml IV at 1 bolus Per protocol; to be given as a bolus over 60 ap3 minutes Route: IV; Rate: 1 bolus; Site: right antecubital; 15:59 Follow up: IV Status: Completed infusion ap3 15:37 Drug: Acetaminophen PO 1000 mg PO once Route: PO; ap3 17:05 Follow up: Response: No adverse reaction; Pain is decreased ap3 15:53 Drug: NS 0.9% IV 1000 ml IV at 1 bolus Per protocol; to be given as a bolus over 60 ap3 minutes Route: IV; Rate: 1 bolus; Site: right antecubital; 17:05 Follow up: IV Status: Completed infusion; IV Intake: 1000ml ap3 Disposition Summary: 11/19/24 16:56 Discharge Ordered Notes: Location: Home sb4 Problem: new sb4 Symptoms: have improved sb4 Condition: Stable sb4 Diagnosis - Influenza due to identified novel influenza A virus sb4 Followup: sb4 - With: Emergency Department - When: As needed - Reason: Trouble breathing, Worsening of condition Discharge Instructions: - Discharge Summary Sheet sb4 - Influenza, Adult, [id number] sb4 Forms: - Patient Portal Instructions sb4 - Leadership Thank You Letter sb4 Prescriptions: - ondansetron 4 mg Oral Tablet,disintegrating - take 1 tablet ORAL route every 4-6 hours; 10 tablet; Refills: 0, Product sb4 Selection Permitted Addendum: 11/23/2024 12:45 Co-signature as Attending Physician, Torres Do MD I agree with the assessment and c caruso plan of care. Signatures: Dispatcher [employer] Torres Owens MD MD cha Prokisch, Amanda RN RN ap3 Hillary Pearson PABrian PASloaneC sb4 Anamaria Suarez RN RN tm6
--- NOTE | 2024-11-19 16:57 | ER ---
Nurse's Notes [facility] Name: Himanshu Mcdermott Age: 64 yrs Sex: Male : 1960 Arrival Date: 11/19/2024 Time: 14:22 Bed 13 Private MD: Diagnosis: Influenza due to identified novel influenza A virus Presentation: 11/19 14:32 Chief complaint: Patient states: joints ache, chills, cough x3 days. Been taking tm6 Theraflu for 3 days. N/V started today. Coronavirus screen: Client denies travel out of the [place] in the last 14 days. Ebola Screen: Patient negative for fever greater than or equal to 101.5 degrees Fahrenheit, and additional compatible Ebola Virus Disease symptoms Patient denies exposure to infectious person. Patient denies travel to an Ebola-affected area in the 21 days before illness onset. No symptoms or risks identified at this time. Initial Sepsis Screen: Does the patient meet any 2 criteria? HR > 90 bpm. Does the patient have a suspected source of infection? No. Patient's initial sepsis screen is negative. Risk Assessment: Do you want to hurt yourself or someone else? Patient reports no desire to harm self or others. Onset of symptoms was November 16, 2024. 14:32 Method Of Arrival: Ambulatory tm6 14:32 Acuity: PAU 3 tm6 Triage Assessment: 14:34 General: Appears uncomfortable, Behavior is calm, cooperative. Pain: Complains of pain tm6 in body aches Pain currently is 8 out of 10 on a pain scale. EENT: No signs and/or symptoms were reported regarding the EENT system. Neuro: Level of Consciousness is awake, alert, obeys commands, Oriented to person, place, time, situation. Cardiovascular: Patient's skin is warm and dry. Respiratory: Reports cough that is Airway is patent Respiratory effort is even, unlabored, Respiratory pattern is regular, symmetrical. GI: Reports nausea, vomiting, since this morning. : No signs and/or symptoms were reported regarding the genitourinary system. Derm: No signs and/or symptoms reported regarding the dermatologic system. Musculoskeletal: Reports body aches x3 days. Historical: - Allergies: 14:34 Iodine; tm6 - PMHx: 14:34 Diabetes - IDDM; Hernia; kidney cancer (Hernia); tm6 - PSHx: 14:34 gastric sleeve (Hernia); part of kidney removed (Hernia); tm6 - Immunization history:: Flu vaccine is not up to date. - Infectious Disease History:: Denies. - Social history:: Smoking status: Patient reports the use of cigarette tobacco products, smokes .25 packs per day. Screenin:58 [facility] ED Fall Risk Assessment (Adult) History of falling in the last 3 months, ap3 including since admission No falls in past 3 months (0 pts) Confusion or Disorientation No (0 pts) Intoxicated or Sedated No (0 pts) Impaired Gait No (0 pts) Mobility Assist Device Used No (0 pt) Altered Elimination No (0 pt) Score/Fall Risk Level 0 - 2 = Low Risk Oriented to surroundings, Maintained a safe environment, Educated pt \T\ family on fall prevention, incl call for assistance when getting out of bed, Assessed \T\ reinforced patient's understanding of fall precautions, Hourly rounding (assess needs \T\ fall precautionary measures) done, Used ambulatory aids as needed (educated on \T\ assisted with), Used gait belt as appropriate. Abuse screen: Denies threats or abuse. Nutritional screening: No deficits noted. Tuberculosis screening: No symptoms or risk factors identified. Assessment: 14:57 General: Appears ill, Behavior is calm, cooperative, appropriate for age. Pain: ap3 Complains of pain in generalized body aches. Neuro: Level of Consciousness is awake, alert, obeys commands, Oriented to person, place, time, situation. Cardiovascular: Patient's skin is warm and dry. Respiratory: Reports cough that is Airway is patent Respiratory effort is even, unlabored, Respiratory pattern is regular, symmetrical. GI: Reports nausea, vomiting. Vital Signs: 14:32 BP 151 / 72; Pulse 117; Resp 19; Temp 99.9(O); Pulse Ox 94% on R/A; MAP 94 mmHg; Weight tm6 90.72 kg; Height 6 ft. 0 in. ; Pain 8/10; 15:01 BP 140 / 72; Pulse 115; Resp 19; Pulse Ox 95% on R/A; ap3 15:58 BP 127 / 61; Pulse 117; Pulse Ox 93% on R/A; ap3 16:42 Pulse 104; Pulse Ox 95% ; ap3 14:32 Body Mass Index 27.12 (90.72 kg, 182.88 cm) tm6 14:32 Pain Scale: Adult tm6 ED Course: 14:25 Patient arrived in ED. ra3 14:25 Hillary Pearson PA-C [facility]. sb4 14:25 Torres Do MD is Attending Physician. sb4 14:29 Virginia Andrews, JACKY is Primary Nurse. ap3 14:34 Triage completed. tm6 14:34 Arm band placed on right wrist. tm6 14:56 Initial lab(s) drawn, by me, sent to lab. Inserted saline lock: 20 gauge in right ap3 antecubital area, using aseptic technique. Blood collected. Flushed with 10 mL NS. 14:57 Flu Sent. ap3 14:57 SARS RAPID Sent. ap3 14:57 COVID swab sent to lab. Flu and/or RSV swab sent to lab. ap3 14:58 Patient has correct armband on for positive identification. Bed in low position. Call ap3 light in reach. Side rails up X 1. Adult w/ patient. Provided Education on: medications prior to administration . Pulse ox on. NIBP on. 16:30 CT Chest Abdomen Pelvis W/O Contrast In Process Unspecified. EDMS 17:05 No provider procedures requiring assistance completed. IV discontinued, intact, ap3 bleeding controlled, No redness/swelling at site. Pressure dressing applied. Administered Medications: 14:57 Drug: TORadol - Ketorolac IVP 15 mg IVP once Route: IVP; Site: right antecubital; ap3 15:59 Follow up: Response: No adverse reaction; Pain is decreased ap3 14:57 Drug: Ondansetron IVP 4 mg IVP once; over 2 minutes Route: IVP; Site: right antecubital;ap3 15:59 Follow up: Response: No adverse reaction; Nausea is decreased ap3 14:57 Drug: NS 0.9% IV 1000 ml IV at 1 bolus Per protocol; to be given as a bolus over 60 ap3 minutes Route: IV; Rate: 1 bolus; Site: right antecubital; 15:59 Follow up: IV Status: Completed infusion ap3 15:37 Drug: Acetaminophen PO 1000 mg PO once Route: PO; ap3 17:05 Follow up: Response: No adverse reaction; Pain is decreased ap3 15:53 Drug: NS 0.9% IV 1000 ml IV at 1 bolus Per protocol; to be given as a bolus over 60 ap3 minutes Route: IV; Rate: 1 bolus; Site: right antecubital; 17:05 Follow up: IV Status: Completed infusion; IV Intake: 1000ml ap3 Medication: 14:59 VIS not applicable for this client. ap3 Intake: 17:05 IV: 1000ml; Total: 1000ml. ap3 Outcome: 16:56 Discharge ordered by . sb4 17:05 Discharged to home ambulatory, with family, ap3 17:05 Condition: good 17:05 Discharge instructions given to patient, family, Instructed on discharge instructions, follow up and referral plans. medication usage, Demonstrated understanding of instructions, follow-up care, medications, Prescriptions given X 1, 17:06 Patient left the ED. ap3 Signatures: Dispatcher [employer] Virginia Johnson RN RN ap3 Hillary Pearson, PASloaneC PABrian garrett4 Anamaria Suarez RN RN tm6 Mary Smith 3
[2024-11-19 17:31] VITALS: TEMP 99.9
[2024-11-19 17:33] VITALS: BP 127/61
[2024-11-19 17:34] VITALS: O2SAT 95
== END 2024-11-19 17:06 | disposition home or self-care (01) ==
LOC: ER 14:22
DX: J10.1 Influenza due to other identified influenza virus with other respiratory manifestations (principal); Z11.52 Encounter for screening for COVID-19; F17.210 Nicotine dependence, cigarettes, uncomplicated
CPT/HCPCS: 96361; 85025; 36415; 83690; 80053; 87804 ×2; 71250; 74176; 96375; 96374; 99284; 87811; J2405; J7030 ×2

== ENCOUNTER 2025-02-14 08:19 | Day surgery (SDC) | payer OTHER ==
[2025-02-09 13:17] LABS: Absolute Lymphocytes (CBC) 2.4 K/uL (0.7-4.9); Absolute Monocytes 0.4 K/uL (0.1-1.3); Absolute Neutrophil 4.5 K/uL (1.8-8.0); Basophils % 0.5 % (0-1.3); Eosinophils % 0.6 % (0-4.4); Hematocrit 43.3 % (39.6-49.0); Hemoglobin 14.6 g/dL (13.6-17.9); Lymphocytes % 31.9 % (15.3-44.8); MCH 31.6 pg (27.0-35.0); MCHC 33.8 g/dL (32.0-36.0); MCV 93.5 fL (80-100); Nucleated Red Blood Cells % 0.1 % (0-0); Platelets 218 thou/uL (152-406); RBC Red Blood Cell Count 4.63 M/uL (4.33-5.43); Red Cell Distribution Width 13.6 % (12.1-15.2)
[2025-02-09 13:24] LABS: PT Prothrombin Time 11.3 SECONDS (10-13.0); Protime INR 0.99
[2025-02-09 13:30] LABS: Anion Gap 7.6 mEq/L (5.0-15.0); Potassium 3.6 mEq/L (3.5-5.1)
--- NOTE | 2025-02-09 17:22 | RAD REPORT ---
EXAMINATION: TWO VIEW CHEST XR CLINICAL INDICATION: Male, 64 years old. [facility] pre op for day surgery. Hypertension TECHNIQUE: 2 view radiographs of the chest were performed. COMPARISON: 11/19/2022 FINDINGS: The lungs are well inflated and clear. No pneumothorax or sizable effusion. The heart is normal in si ze. Mediastinal contours are unremarkable. IMPRESSION: No acute or significant abnormalities.
[2025-02-14] MEDS: NA CHLORIDE 0.9% 1,000 ML ONE (08:53)
[2025-02-14] MEDS ORDERED: FENTANYL CITR 100 MCG/2 ML ONE (09:56)
[2025-02-14] MEDS ORDERED: LIDOCAINE 1% MPF 5 ML VIAL ONE (09:56)
[2025-02-14] MEDS ORDERED: MIDAZOLAM HCL 2 MG/2 ML INJ ONE (09:56)
[2025-02-14] MEDS ORDERED: ROCURONIUM 50 MG/5 ML VIAL IV ONE (09:56)
[2025-02-14] MEDS ORDERED: KETOROLAC 30 MG/ML INJ ONE (09:56)
[2025-02-14] MEDS ORDERED: propofoL 200 MG/20 ML VIAL IV ONE (09:56)
[2025-02-14] MEDS ORDERED: SUCCINYLCHOLINE 20 MG/ML (10 ML) IV ONE (10:04)
[2025-02-14] MEDS ORDERED: SUGAMMADEX SODIUM 200 MG/2 ML VIAL IV ONE (10:05)
[2025-02-14] MEDS ORDERED: LIDOCAINE HCL/EPINEPHRINE 20 ML MDV ONE (10:17)
[2025-02-14] MEDS: CEFAZOLIN SODIUM 2 GM/VIAL ONE (10:20)
[2025-02-14] MEDS: EPINEPHRINE 1 MG/ML VIAL ONE (11:09)
[2025-02-14] MEDS: TRIAMCINOLONE ACETON 40 MG/ML VIAL ONE (11:20)
[2025-02-14] MEDS: BUPIVACAINE 0.25% PF 30 ML VIAL ONE (11:20)
--- NOTE | 2025-02-14 11:45 | P.BOP ---
Preoperative diagnosis: right shoulder adhesive capsulitis Postoperative diagnosis: same Primary procedure: right shoulder arthroscopic lysis of adhesions Secondary procedure: right shoulder [employer] Offbearer: NONE,NONE Specimen: none Findings: see dictation Anesthesia: General Complications: None Implants: none Fluids & blood products: per anesthesia record
--- NOTE | 2025-02-14 11:52 | P.OP ---
Preoperative diagnosis: Right shoulder adhesive capsulitis Postoperative diagnosis: Same Primary procedure: right shoulder arthroscopic lysis of adhesions Secondary procedure: right shoulder Anesthesia: General Estimated blood loss: 3 cc Specimen: None Findings: see dictation Operative Technique: Indication For Procedure: Himanshu is a 64-year-old male who presented to my clinic with signs, symptoms, and MRI findings consistent with right shoulder adhesive capsulitis. Patient failed conservative treatment measures. I discussed with the patient risks and benefits associated with operative and nonoperative treatment. He expressed understanding and elected to proceed with operative treatment. Description Of Procedure: After informed consent was obtained, the patient was identified in the preoperative holding area. The right upper extremity was marked. The patient was brought back to the operating room, transferred to the operative table in supine fashion, placed under general endotracheal anesthesia. He was then placed in a beach chair position with his extremities well padded. The right upper extremity was then prepped and draped in usual sterile fashion. A time-out was initiated. The correct patient and procedure were performed and identified. The patient did receive preoperative prophylactic antibiotics. Manipulation under anesthesia was then performed. With one hand stabilizing the scapula gentle pressure was placed on the upper arm in a forward flexion manner audible and palpable pops were felt as scar tissue was released. There is increase in forward flexion after completion of the manipulation. Then the arm was also brought into abduction and external rotation. Via the posterior portal position, a spinal needle was introduced in the glenohumeral joint and the shoulder was injected with 30 cc of normal saline to distend the capsule. A stab incision was made posteriorly and a posterior portal was created. A rthroscope was brought in via the posterior portal position and diagnostic arthroscopy was performed. There was significant hyperemia of the shoulder around the biceps anchor and rotator given interval. Using the arthroscopic shaver and radiofrequency ablator the rotator interval was debrided as well as a anterior inferior capsule. Arthroscopic instruments were then removed without complication. A spinal needle was brought to the joint and Kenalog and Marcaine were injected into the shoulder joint. Manipulation was then performed again bringing the shoulder into forward flexion and abduction with some increased range of motion. Wounds were then irrigated thoroughly with normal saline. Subcutaneous tissue was approximated using a 2-0 Vicryl. Portals were approximated using a 3-0 Monocryl. Sterile dressings were applied. Patient was placed in a sling for comfort The patient was awakened and transferred to PACU in stable condition. Postoperative Plan: The patient may be weightbearing as tolerated. He will begin physical therapy tomorrow to work on range of motion exercises. Complications: None Implants: None Fluids & blood products: Per anesthesia record Transferred to: Recovery Room Condition: Good
[2025-02-14] MEDS: HYDROMORPHONE HCL 1 MG/ML INJ ONE ×2 (11:58→12:05)
--- NOTE | 2025-02-14 12:49 | RAD REPORT ---
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 No unusual or unexpected immediate postsurgical finding.
--- NOTE | 2025-02-14 12:51 | EKG ---
Test Date: 2025-02-09 Test Time: 12:56:04 Multimedia Artist: MEASUREMENT RESULTS: Intervals: Rate: 84 KS: 118 QRSD: 96 QT: 364 QTc: 430 [place]: P: 53 [place]: 118 QRS: 2 T: 55 INTERPRETIVE STATEMENTS: Normal sinus rhythm Normal ECG Compared to ECG 11/19/2022 16:45:45 No significant changes Electronically Signed On 02-14-25 12:33:27 CDT by Georgi Snow
[2025-02-14] MEDS: ONDANSETRON 4 MG/2 ML VIAL ONE (13:15)
[2025-02-14 15:28] VITALS: BP 134/84; TEMP 97.4; O2SAT 96
== END 2025-02-14 15:10 | disposition home or self-care (01) ==
LOC: OR 08:19
PROVIDERS: ATTEND Orthopaedic Surgery Sports Medicine
PROC: 0RNJ4ZZ Release Right Shoulder Joint, Percutaneous Endoscopic Approach (ICD-10-PCS; principal; 2025-02-14 10:15)
DX: M75.01 Adhesive capsulitis of right shoulder (principal)
CPT/HCPCS: 93005; 85025; 80048; 36415; 85610; 82947 ×2; 85730; 71046; 73020; 29825; J2704; J3301; J2003; J2250; J3010; J0171; J1171 ×2; J2405; J7030